=== PATIENT | female | born 1995 | race Native Hawaiian/Other Pacific Islander ===

== ENCOUNTER 2018-04-25 23:09 | Outpatient (CLI) | payer SELFPAY ==
[2018-04-25 23:52] VITALS: BP 99/62
[2018-04-26] MEDS ORDERED: LACTATED RINGERS 1,000 ML IV ONE (00:08)
[2018-04-26 04:10] LABS: Bilirubin,Urine NEG (Negative); Blood,Urine SM (Negative); Calcium Oxalate Crystals,Urine 1+; Color,Urine Yellow (Yellow); Mucus,Urine 1+ /HPF; Protein,Urine <15 mg/dL mg/dL (Negative); Urobilinogen,Urine < 2.0 mg/dL (<2.0)
== END 2018-04-26 01:55 | disposition home or self-care (01) ==
LOC: TRG 23:09
PROVIDERS: ATTEND Obstetrics & Gynecology
DX: O26.893 Other specified pregnancy related conditions, third trimester (principal); Z3A.30 30 weeks gestation of pregnancy
CPT/HCPCS: 36415; 59025; 81001; 82731

== ENCOUNTER 2018-06-16 09:25 | Inpatient (IN) | payer MEDICAID, OTHER ==
[2018-06-16] MEDS ORDERED: LACTATED RINGERS 1,000 ML IV ONE (10:39)
[2018-06-16 10:41] LABS: Bacteria,Urine 1+ /HPF (Negative); Bilirubin,Urine NEG (Negative); Blood,Urine NEG (Negative); Color,Urine Yellow (Yellow); Mucus,Urine 1+ /HPF; Protein,Urine <15 mg/dL mg/dL (Negative); Urobilinogen,Urine < 2.0 mg/dL (<2.0)
[2018-06-16] MEDS ORDERED: AMPICILLIN/NS 2 GM/100 ML 2 GM/100 ML BAG IV ONE (11:00)
[2018-06-16] MEDS ORDERED: BRETHINE SUB-Q ONE ×3 (11:00→16:00)
--- NOTE | 2018-06-16 11:06 | History and Physical Report ---
History of Present Illness Date of examination: 06/16/18 Date of admission: 06/16/18 10:30 Chief complaint: Contractions for 3 days History of present illness: 22 year old presents to L&D complaining of fairly regular contractions for the past 3 days. Patient states the contractions started hurting worse this morning when she woke up. Patient denies vaginal bleeding or leaking of fluid. Patient reports active movement. Patient denies fever, chills, or malaise. Patient state she received care at [facility] last year. She states she only made 2 visits, one at 20 weeks and another at about 4 weeks after that. She states she was last seen in January or February 2018. She states she has not received any care since that time due to lack of money. No records are available. Patient states her due date is 07/19/18 and was based on her LMP. Patient does not remember the exact date of her LMP. Patient states she had one ultrasound done at the clinic around 20 weeks and states she was told everything looked OK. labs and ultrasound have been ordered today. 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 denies: smoking, alcohol abuse, prescription drug abuse, IV drug use - Obstetrical History Expected Date of Delivery: 07/19/18 Actual Gestation: 35 Week(s) 2 Day(s) : 2 Para: 1 Hx # Term Pregnancies: 1 Number of Pregnancies: 1 Spontaneous Abortions: 0 Induced : 0 Number of Living Children: 1 Medications and Allergies Allergies Allergy/AdvReac Type Severity Reaction Status Date / Time No Known Allergies Allergy Verified 06/16/18 09:32 Home Medications Medication Instructions Recorded Confirmed Last Taken Type No Known Home Medications [No 06/16/18 06/16/18 Unknown History Reported Home Medications] Active Meds: Active Medications Dexamethasone (Decadron) 6 mg IM Q12HR KARYN Stop: 06/17/18 22:01 Ampicillin Sodium (Polycillin/Ns 2 Gm/100 Ml) 2 gm in 100 mls @ 100 mls/hr IV ONCE ONE; Protocol Stop: 06/16/18 11:59 Ampicillin Sodium (Ampicillin/Ns 1 Gm/50 Ml) 1 gm in 50 mls @ 100 mls/hr IV Q4H KARYN; Protocol Lactated Ringer's (Lactated Ringers) 1,000 mls @ 125 mls/hr IV DIRECT KARYN Lactated Ringer's (Lactated Ringers) 1,000 mls @ 999 mls/hr IV BOLUS ONE Stop: 06/16/18 11:39 Nitrofurantoin Macrocrystals (Macrobid) 100 mg PO Q12HR KARYN Review of Systems All systems: negative (contractions for the past 3 days) - Vital Signs Vital signs: Vital Signs Pulse BP 80 113/70 06/16/18 09:47 06/16/18 09:47 Temp Pulse Resp BP Pulse Ox 62 119/65 06/16/18 10:44 06/16/18 10:44 - Physical Exam Abdomen: Positive: normal appearance, soft. Negative: distention, tenderness, guarding, rigidity Genitourinary (Female): Positive: normal external genitalia, normal perenium. Negative: perineal/vulvar lesions Vagina: Positive: normal moisture (speculum exam performed; no leaking of water or vaginal bleeding noted) Uterus: Positive: enlarged. Negative: tender Anus/Rectum: Positive: normal perianal skin Extremities: Positive: normal. Negative: edema - Obstetrical FHR: category 1 Uterine Contraction Monitor Mode: External Cervical Dilatation: 2 Cervical Effacement Percentage: 70 station: -2 Uterine Contraction Pattern: Irregular Uterine Contraction Intensity: Mild Results Abnormal lab results 06/16/18 Range/Units 09:33 Urine WBC (Auto) 25.0 H (0.0-6.0) /HPF U Epithel Cells (Auto) 17.0 H (0-13.0) /HPF All other labs normal. Assessment and Plan A: at 35 weeks, 2 days gestation. Threatened labor. Limited care and no records available. GBS unknown. P: Admit. Continuous EFM. Bedrest. IM Dexamethasone for FLM. IV hydration and SQ Brethine for contractions. GBS prophylaxis. Treatment for possible UTI. labs and US for gestational age, EDC, VIRA, location of placenta, and presentation. Will consult with Dr. Mosher re: this patient due to gestation.
[2018-06-16] MEDS: DECADRON IM SCH ×2 (11:58→23:44)
[2018-06-16 12:07] LABS: Basophils % (Auto) 0.4 % (0.0-1.8); Eosinophils # (Auto) 0.1 K/mm3 (0.0-0.4); Eosinophils % (Auto) 0.8 % (0.0-4.3); Hematocrit 31.8 % (30.3-42.9); Hemoglobin 10.6 gm/dl (10.1-14.3); Lymphocytes # (Auto) 1.6 K/mm3 (1.2-5.4); Mean Corpuscular HGB Conc 33 % (30-34); Mean Corpuscular Volume 86 fl (79-97); Monocytes # (Auto) 0.5 K/mm3 (0.0-0.8); Monocytes % (Auto) 6.7 % (0.0-7.3); Platelet Count 170 K/mm3 (140-440); Red Blood Count 3.68 M/mm3 (3.65-5.03); Red Cell Distribution Width 14.4 % (13.2-15.2)
[2018-06-16 12:20] LABS: Amphetamine Screen,Urine PRESUMPTIVE NEGATIVE; Benzodiazepines Screen,Urine PRESUMPTIVE NEGATIVE; Cannabinoid Screen,Urine PRESUMPTIVE NEGATIVE; Cocaine Screen,Urine PRESUMPTIVE NEGATIVE; Methadone Screen,Urine PRESUMPTIVE NEGATIVE; Opiate Screen,Urine PRESUMPTIVE NEGATIVE
[2018-06-16 13:33] LABS: Hepatitis C Virus Antibody Non-Reactive (NonReactive)
--- NOTE | 2018-06-16 13:44 | Ultrasound Report ---
PROCEDURE: US OB FOLLOW UP TECHNIQUE: OB ultrasound was performed. HISTORY: EGA, EDC, EFW, VIRA, location of placenta, pr COMPARISONS: None. FINDINGS: A single live intrauterine fetus is present in cephalic presentation with a heart rate of 158 bpm. Th e placenta is grade 2 and anterior in location. No evidence of placenta previa. The maternal cervix i s closed measuring 3.0 cm in length. Amniotic fluid index is normal at 7.9 cm. Biparietal diameter: 35 weeks and 6 days. Head circumference: 35 weeks and 5 days. Abdominal circumference: 44 weeks and 5 days. Femur length: 35 weeks and 2 days. Combined estimated gestational age is 35 weeks and 3 days with an MONICA of 07/18/2018. Estimated w eight is 2578 g. IMPRESSION: Live intrauterine measuring at 35 weeks and 3 days gestational age with an MONICA of 07/18/2018 . Amniotic fluid index of 7.9 cm. No evidence of placenta previa. This document is electronically signed by Jade Gilbert., June 16 2018 01:42:31 PM ET
[2018-06-16] MEDS: MACROBID PO SCH ×2 (14:27→22:04)
[2018-06-16] MEDS: AMPICILLIN/NS 1 GM/50 ML 1 GM/50 ML BAG IV SCH ×3 (16:14→23:44)
[2018-06-16] MEDS: LACTATED RINGERS 1,000 ML IV SCH (22:05)
[2018-06-17] MEDS ORDERED: TYLENOL PO ONE (00:43)
[2018-06-17] MEDS: AMPICILLIN/NS 1 GM/50 ML 1 GM/50 ML BAG IV SCH ×5 (04:08→14:53)
--- NOTE | 2018-06-17 09:48 | Progress Note ---
Assessment and Plan - Patient Problems (1) 35 weeks gestation of Current Visit: Yes Status: Acute (2) labor in third trimester Current Visit: Yes Status: Acute Qualifiers: Fetus number: single or unspecified fetus Plan to address problem: Continue current management Continue IV hydration Continue Dexamethasone series If no cervical change after completion of Dexamethasone series, will discharge patient to home with PTL precautions to f/u at [facility] in 48 hours (3) Limited care in third trimester Current Visit: Yes Status: Acute Subjective - Subjective Date of service: 06/17/18 Principal diagnosis: IUP @ 35w3d, Labor Interval history: See H&P Patient reports: movement normal, contractions (irregular), no loss of fluid, no vaginal bleeding Objective - Vital Signs Vital Signs: Vital Signs - 12hr 06/16/18 06/16/18 06/17/18 23:45 23:49 02:59 Temperature 98.1 F Pulse Rate 68 68 Respiratory 16 Rate Blood Pressure 114/69 O2 Sat by Pulse 98 Oximetry 06/17/18 06/17/18 06/17/18 03:04 03:09 03:14 Temperature Pulse Rate 71 71 72 Respiratory Rate Blood Pressure O2 Sat by Pulse 97 98 97 Oximetry 06/17/18 06/17/18 06/17/18 03:19 03:24 03:29 Temperature Pulse Rate 72 74 71 Respiratory Rate Blood Pressure O2 Sat by Pulse 97 98 97 Oximetry 06/17/18 06/17/18 06/17/18 03:34 03:39 03:44 Temperature Pulse Rate 71 70 75 Respiratory Rate Blood Pressure O2 Sat by Pulse 97 97 97 Oximetry 06/17/18 06/17/18 06/17/18 03:49 03:54 03:59 Temperature Pulse Rate 69 68 69 Respiratory Rate Blood Pressure O2 Sat by Pulse 97 98 97 Oximetry 06/17/18 06/17/18 06/17/18 04:04 04:05 04:09 Temperature 98.3 F Pulse Rate 69 73 Respiratory 18 Rate Blood Pressure O2 Sat by Pulse 97 98 Oximetry 06/17/18 06/17/18 06/17/18 04:12 04:14 04:19 Temperature Pulse Rate 73 75 81 Respiratory Rate Blood Pressure 105/57 O2 Sat by Pulse 97 97 Oximetry 06/17/18 06/17/18 06/17/18 04:24 04:29 04:34 Temperature Pulse Rate 77 76 74 Respiratory Rate Blood Pressure O2 Sat by Pulse 97 97 97 Oximetry 06/17/18 06/17/18 06/17/18 04:39 04:44 04:49 Temperature Pulse Rate 73 72 72 Respiratory Rate Blood Pressure O2 Sat by Pulse 97 97 97 Oximetry 06/17/18 06/17/18 06/17/18 04:54 04:59 05:04 Temperature Pulse Rate 74 69 69 Respiratory Rate Blood Pressure O2 Sat by Pulse 97 96 97 Oximetry 06/17/18 06/17/18 06/17/18 05:09 05:14 05:19 Temperature Pulse Rate 65 69 65 Respiratory Rate Blood Pressure O2 Sat by Pulse 96 96 96 Oximetry 06/17/18 06/17/18 06/17/18 05:24 05:29 05:34 Temperature Pulse Rate 63 71 70 Respiratory Rate Blood Pressure O2 Sat by Pulse 97 97 97 Oximetry 06/17/18 06/17/18 06/17/18 05:39 05:44 05:49 Temperature Pulse Rate 72 72 71 Respiratory Rate Blood Pressure O2 Sat by Pulse 97 98 97 Oximetry 06/17/18 06/17/18 06/17/18 05:54 05:59 06:04 Temperature Pulse Rate 73 73 85 Respiratory Rate Blood Pressure O2 Sat by Pulse 97 97 98 Oximetry 06/17/18 06/17/18 06/17/18 06:09 06:14 06:19 Temperature Pulse Rate 73 78 74 Respiratory Rate Blood Pressure O2 Sat by Pulse 98 97 98 Oximetry 06/17/18 06/17/18 06/17/18 06:24 06:29 06:34 Temperature Pulse Rate 71 74 70 Respiratory Rate Blood Pressure O2 Sat by Pulse 98 97 98 Oximetry 06/17/18 06/17/18 06/17/18 06:39 06:44 06:49 Temperature Pulse Rate 77 69 70 Respiratory Rate Blood Pressure O2 Sat by Pulse 98 97 97 Oximetry 06/17/18 06/17/18 06/17/18 06:54 06:59 07:04 Temperature Pulse Rate 69 69 71 Respiratory Rate Blood Pressure O2 Sat by Pulse 97 97 96 Oximetry 06/17/18 06/17/18 06/17/18 07:09 07:14 07:19 Temperature Pulse Rate 69 69 72 Respiratory Rate Blood Pressure O2 Sat by Pulse 97 97 97 Oximetry 06/17/18 06/17/1806/17/19 07:24 07:29 07:34 Temperature Pulse Rate 71 71 72 Respiratory Rate Blood Pressure O2 Sat by Pulse 97 99 97 Oximetry 06/17/18 06/17/18 06/17/18 07:39 07:44 07:49 Temperature Pulse Rate 74 71 72 Respiratory Rate Blood Pressure O2 Sat by Pulse 98 98 97 Oximetry 06/17/18 06/17/18 06/17/18 07:54 07:59 08:04 Temperature Pulse Rate 67 75 78 Respiratory Rate Blood Pressure O2 Sat by Pulse 99 99 97 Oximetry 06/17/18 06/17/18 06/17/18 08:09 08:14 08:19 Temperature Pulse Rate 71 70 71 Respiratory Rate Blood Pressure O2 Sat by Pulse 98 97 97 Oximetry 06/17/18 06/17/18 06/17/18 08:24 08:29 08:34 Temperature Pulse Rate 72 68 75 Respiratory Rate Blood Pressure O2 Sat by Pulse 96 98 98 Oximetry 06/17/18 06/17/18 06/17/18 08:41 08:46 08:51 Temperature Pulse Rate 85 77 76 Respiratory Rate Blood Pressure O2 Sat by Pulse 97 98 98 Oximetry 06/17/18 06/17/18 06/17/18 08:56 09:01 09:06 Temperature Pulse Rate 74 77 76 Respiratory Rate Blood Pressure O2 Sat by Pulse 98 97 97 Oximetry 06/17/18 06/17/18 06/17/18 09:11 09:16 09:21 Temperature Pulse Rate 76 72 76 Respiratory Rate Blood Pressure O2 Sat by Pulse 97 96 99 Oximetry 06/17/18 06/17/18 06/17/18 09:26 09:31 09:36 Temperature Pulse Rate 74 68 74 Respiratory Rate Blood Pressure O2 Sat by Pulse 97 97 96 Oximetry - Exam Vulva: both: normal FHR: auscultation normal, category 1 FHR comments: baseline 140, moderate variability, 15x15 accels, no decels Uterine Contraction Monitor Mode: External Cervical Dilatation: 2 Cervical Effacement Percentage: 70 station: -2 Uterine Contraction Pattern: Irregular Extremities: normal - Labs Labs: Abnormal Labs 06/16/18 06/16/18 09:33 11:48 Seg Neutrophils % 72.1 H Urine WBC (Auto) 25.0 H U Epithel Cells (Auto) 17.0 H Laboratory Results - last 24 hr 06/16/18 06/16/18 06/16/18 09:33 11:48 11:48 WBC 7.9 RBC 3.68 Hgb 10.6 Hct 31.8 MCV 86 MCH 29 MCHC 33 RDW 14.4 Plt Count 170 Lymph % (Auto) 20.0 [place] % (Auto) 6.7 Eos % (Auto) 0.8 Baso % (Auto) 0.4 Lymph # 1.6 [place] # 0.5 Eos # 0.1 Baso # 0.0 Seg Neutrophils % 72.1 H Seg Neutrophils # 5.7 Hemoglobin A1c Urine Color Yellow Urine Turbidity Slightly-cloudy Urine pH 6.0 Ur Specific [place] 1.021 Urine Protein <15 mg/dl Urine Glucose (UA) Neg Urine Ketones Neg Urine Blood Neg Urine Nitrite Neg Urine Bilirubin Neg Urine Urobilinogen < 2.0 Ur Leukocyte Esterase Lg Urine WBC (Auto) 25.0 H Urine RBC (Auto) 11.0 U Epithel Cells (Auto) 17.0 H Urine Bacteria (Auto) 1+ Urine Mucus 1+ Urine Opiates Screen Urine Methadone Screen Ur Barbiturates Screen Ur Phencyclidine Scrn Ur Amphetamines Screen U Benzodiazepines Scrn Urine Cocaine Screen U Marijuana (THC) Screen Drugs of Abuse Note RPR Hep Bs Antigen Hepatitis C Antibody HIV 1&2 Antibody Rapid HIV P24 Antigen Rubella IgG Antibody Blood Type A POSITIVE Antibody Screen Negative 06/16/18 06/16/18 06/16/18 11:48 11:48 11:48 WBC RBC Hgb Hct MCV MCH MCHC RDW Plt Count Lymph % (Auto) [place] % (Auto) Eos % (Auto) Baso % (Auto) Lymph # [place] # Eos # Baso # Seg Neutrophils % Seg Neutrophils # Hemoglobin A1c Urine Color Urine Turbidity Urine pH Ur Specific [place] Urine Protein Urine Glucose (UA) Urine Ketones Urine Blood Urine Nitrite Urine Bilirubin Urine Urobilinogen Ur Leukocyte Esterase Urine WBC (Auto) Urine RBC (Auto) U Epithel Cells (Auto) Urine Bacteria (Auto) Urine Mucus Urine Opiates Screen Urine Methadone Screen Ur Barbiturates Screen Ur Phencyclidine Scrn Ur Amphetamines Screen U Benzodiazepines Scrn Urine Cocaine Screen U Marijuana (THC) Screen Drugs of Abuse Note RPR Nonreactive Hep Bs Antigen Hepatitis C Antibody Non-reactive HIV 1&2 Antibody Rapid Non react HIV P24 Antigen Non react Rubella IgG Antibody Immune Blood Type Antibody Screen 06/16/18 06/16/18 06/16/18 11:48 11:48 Unknown WBC RBC Hgb Hct MCV MCH MCHC RDW Plt Count Lymph % (Auto) [place] % (Auto) Eos % (Auto) Baso % (Auto) Lymph # [place] # Eos # Baso # Seg Neutrophils % Seg Neutrophils # Hemoglobin A1c 5.6 Urine Color Urine Turbidity Urine pH Ur Specific [place] Urine Protein Urine Glucose (UA) Urine Ketones Urine Blood Urine Nitrite Urine Bilirubin Urine Urobilinogen Ur Leukocyte Esterase Urine WBC (Auto) Urine RBC (Auto) U Epithel Cells (Auto) Urine Bacteria (Auto) Urine Mucus Urine Opiates Screen Presumptive negative Urine Methadone Screen Presumptive negative Ur Barbiturates Screen Presumptive negative Ur Phencyclidine Scrn Presumptive negative Ur Amphetamines Screen Presumptive negative U Benzodiazepines Scrn Presumptive negative Urine Cocaine Screen Presumptive negative U Marijuana (THC) Screen Presumptive negative Drugs of Abuse Note Disclamer RPR Hep Bs Antigen Non-reactive Hepatitis C Antibody HIV 1&2 Antibody Rapid HIV P24 Antigen Rubella IgG Antibody Blood Type Antibody Screen
[2018-06-17] MEDS: DECADRON IM SCH ×2 (10:30→22:00)
[2018-06-17] MEDS: MACROBID PO SCH ×2 (10:35→22:00)
[2018-06-17] MEDS: LACTATED RINGERS 1,000 ML IV SCH (13:40)
[2018-06-17 21:57] VITALS: BP 107/62
--- NOTE | 2018-06-18 06:58 | Discharge Summary ---
<MATILDE PENALOZA - Last Filed: 06/18/18 06:58> Providers - Providers Date of Admission: 06/16/18 10:30 Date of discharge: 06/17/18 Attending physician: JOSE ALEJANDRO GONZALEZ MD 06/16/18 Consult to Case Management [CONS] Routine Services Needed at Discharge: Community Health Advisor Primary care physician: JOSE ALEJANDRO GONZALEZ MD Hospitalization Reason for admission: IUP - , labor Discharge diagnosis: other ( Labor - undelivered) Hospital course: Complicated by labor. Undelivered. Completed Dexamethasone series. No cervical change in 24 hours. Condition at discharge: Stable Disposition: [id number] TO HOME OR SELFCARE - Discharge Diagnoses (1) 35 weeks gestation of Status: Acute (2) labor in third trimester Status: Resolved Qualifiers: Fetus number: single or unspecified fetus (3) Limited care in third trimester Status: Acute Plan - Provider Discharge Summary Activity: routine, other (pelvic rest, minimal activity) Diet: routine Instructions: routine Additional instructions: [] Smoking cessation referral if applicable(refer to patient education folder for contact #) [] Refer to [facility]'s [facility] Booklet Call your doctor immediately for: * Fever > 100.5 * Heavy vaginal bleeding ( >1 pad per hour) * Severe persistent headache * Shortness of breath * Reddened, hot, painful area to leg or breast * Drainage or odor from incision. * Keep incision clean and dry at all times and follow doctor's instructions regarding bathing/showering - Follow up plan Follow up: JOSE ALEJANDRO GONZALEZ MD [Primary Care Provider] - 48 Hours (Patient instructed to follow up at [facility] in 2 days) Forms: [facility] Discharge Summary <SÁNCHEZ FOX - Last Filed: 06/22/18 14:34> Providers - Providers Date of Admission: 06/16/18 10:30 Attending physician: JOSE ALEJANDRO GONZALEZ MD 06/16/18 Consult to Case Management [CONS] Routine Services Needed at Discharge: Community Health Advisor Primary care physician: JOSE ALEJANDRO GONZALEZ MD Hospitalization Pertinent studies: Laboratory Tests 06/16/18 06/16/18 06/16/18 09:33 11:48 11:48 WBC 7.9 RBC 3.68 Hgb 10.6 Hct 31.8 MCV 86 MCH 29 MCHC 33 RDW 14.4 Plt Count 170 Lymph % (Auto) 20.0 [place] % (Auto) 6.7 Eos % (Auto) 0.8 Baso % (Auto) 0.4 Lymph # 1.6 [place] # 0.5 Eos # 0.1 Baso # 0.0 Seg Neutrophils % 72.1 H Seg Neutrophils # 5.7 Hemoglobin A1c Urine Color Yellow Urine Turbidity Slightly-cloudy Urine pH 6.0 Ur Specific [place] 1.021 Urine Protein <15 mg/dl Urine Glucose (UA) Neg Urine Ketones Neg Urine Blood Neg Urine Nitrite Neg Urine Bilirubin Neg Urine Urobilinogen < 2.0 Ur Leukocyte Esterase Lg Urine WBC (Auto) 25.0 H Urine RBC (Auto) 11.0 U Epithel Cells (Auto) 17.0 H Urine Bacteria (Auto) 1+ Urine Mucus 1+ Urine Opiates Screen Urine Methadone Screen Ur Barbiturates Screen Ur Phencyclidine Scrn Ur Amphetamines Screen U Benzodiazepines Scrn Urine Cocaine Screen U Marijuana (THC) Screen Drugs of Abuse Note RPR Hep Bs Antigen Hepatitis C Antibody HIV 1&2 Antibody Rapid HIV P24 Antigen Rubella IgG Antibody Blood Type A POSITIVE Antibody Screen Negative 06/16/18 06/16/18 06/16/18 11:48 11:48 11:48 WBC RBC Hgb Hct MCV MCH MCHC RDW Plt Count Lymph % (Auto) [place] % (Auto) Eos % (Auto) Baso % (Auto) Lymph # [place] # Eos # Baso # Seg Neutrophils % Seg Neutrophils # Hemoglobin A1c Urine Color Urine Turbidity Urine pH Ur Specific [place] Urine Protein Urine Glucose (UA) Urine Ketones Urine Blood Urine Nitrite Urine Bilirubin Urine Urobilinogen Ur Leukocyte Esterase Urine WBC (Auto) Urine RBC (Auto) U Epithel Cells (Auto) Urine Bacteria (Auto) Urine Mucus Urine Opiates Screen Urine Methadone Screen Ur Barbiturates Screen Ur Phencyclidine Scrn Ur Amphetamines Screen U Benzodiazepines Scrn Urine Cocaine Screen U Marijuana (THC) Screen Drugs of Abuse Note RPR Nonreactive Hep Bs Antigen Hepatitis C Antibody Non-reactive HIV 1&2 Antibody Rapid Non react HIV P24 Antigen Non react Rubella IgG Antibody Immune Blood Type Antibody Screen 06/16/18 06/16/18 06/16/18 11:48 11:48 Unknown WBC RBC Hgb Hct MCV MCH MCHC RDW Plt Count Lymph % (Auto) [place] % (Auto) Eos % (Auto) Baso % (Auto) Lymph # [place] # Eos # Baso # Seg Neutrophils % Seg Neutrophils # Hemoglobin A1c 5.6 Urine Color Urine Turbidity Urine pH Ur Specific [place] Urine Protein Urine Glucose (UA) Urine Ketones Urine Blood Urine Nitrite Urine Bilirubin Urine Urobilinogen Ur Leukocyte Esterase Urine WBC (Auto) Urine RBC (Auto) U Epithel Cells (Auto) Urine Bacteria (Auto) Urine Mucus Urine Opiates Screen Presumptive negative Urine Methadone Screen Presumptive negative Ur Barbiturates Screen Presumptive negative Ur Phencyclidine Scrn Presumptive negative Ur Amphetamines Screen Presumptive negative U Benzodiazepines Scrn Presumptive negative Urine Cocaine Screen Presumptive negative U Marijuana (THC) Screen Presumptive negative Drugs of Abuse Note Disclamer RPR Hep Bs Antigen Non-reactive Hepatitis C Antibody HIV 1&2 Antibody Rapid HIV P24 Antigen Rubella IgG Antibody Blood Type Antibody Screen - Discharge Diagnoses (1) Anemia, chronic disease Status: Acute Plan - Provider Discharge Summary Additional instructions: [] Smoking cessation referral if applicable(refer to patient education folder for contact #) [] Refer to [facility]'s [facility] Booklet Call your doctor immediately for: * Fever > 100.5 * Heavy vaginal bleeding ( >1 pad per hour) * Severe persistent headache * Shortness of breath * Reddened, hot, painful area to leg or breast * Drainage or odor from incision. * Keep incision clean and dry at all times and follow doctor's instructions regarding bathing/showering
== END 2018-06-17 23:15 | disposition home or self-care (01) | DRG 833 ==
LOC: TRG 09:25 → LD 10:30 → TRG 10:37
PROVIDERS: ADMIT Obstetrics & Gynecology; ATTEND Obstetrics & Gynecology
DX: O60.03 Preterm labor without delivery, third trimester (principal); Z3A.35 35 weeks gestation of pregnancy
CPT/HCPCS: 36415; 59025; 76816; 80307; 81001; 83036; 85025; 86592; 86706; 86762; 86803; 86850; 86900; 86901; 87086; 87806; G0378; J0290; J1100; J3105; J7120

== ENCOUNTER 2018-07-03 19:10 | Inpatient (IN) | payer OTHER ==
[2018-07-04] MEDS ORDERED: STADOL IV PRN (04:47)
[2018-07-04] MEDS ORDERED: POLYCILLIN/NS 2 GM/100 ML 2 GM/100 ML BAG IV ONE (04:55)
[2018-07-04] MEDS ORDERED: LACTATED RINGERS 1,000 ML IV SCH (05:00)
[2018-07-04] MEDS ORDERED: SUBLIMAZE IV ONE (05:47)
[2018-07-04 06:48] LABS: Hematocrit 30.3 % (30.3-42.9); Mean Corpuscular HGB Conc 33 % (30-34); Mean Corpuscular Hemoglobin 28 pg (28-32); Mean Corpuscular Volume 84 fl (79-97); Platelet Count 191 K/mm3 (140-440); Red Cell Distribution Width 15.7 % (13.2-15.2)
[2018-07-04] MEDS ORDERED: NARCAN 0.4 MG/1 ML IV PRN (11:35)
[2018-07-04] MEDS ORDERED: BRETHINE SUB-Q PRN (11:35)
[2018-07-04] MEDS ORDERED: ZOFRAN IV PRN (11:35)
[2018-07-04] MEDS ORDERED: XYLOCAINE 2% INFILTRATI ONE ×2 (11:35→14:40)
[2018-07-04] MEDS ORDERED: BRETHINE IVP PRN (11:35)
--- NOTE | 2018-07-04 11:59 | History and Physical Report ---
History of Present Illness Date of examination: 07/04/18 Date of admission: 07/03/18 21:46 Chief complaint: contractions History of present illness: 23 yo Fe , MONICA 07/19/2018 (per pt verbal report), 37w6d, presents with onset of contractions. Pt reports limited care with [facility] (only 2 visits; last visit sometime in March). No records available. Requested. She reports her MONICA to be 07/19/2018 by ultrasound at "about 5 months." Pt was seen at [facility] 06/16/2018 for contractions, had an OBUS; Report reviewed. 35w3d w/MONICA 07/18/2018, EFW 2578g. Normal VIRA. no previa. Pt was given steroids for labor. Pt denies any previous medical history. Denies previous surgery. 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 ) Family/Genetic History: none (Pt denies) Social history: no significant social history, single, lives with family, full code. denies: smoking, alcohol abuse, prescription drug abuse, IV drug use - Obstetrical History Expected Date of Delivery: 07/19/18 Actual Gestation: 37 Week(s) 6 Day(s) : 2 Para: 1 Hx # Term Pregnancies: 1 Number of Pregnancies: 0 Spontaneous Abortions: 0 Induced : 0 Number of Living Children: 1 Medications and Allergies Allergies Allergy/AdvReac Type Severity Reaction Status Date / Time No Known Allergies Allergy Verified 06/16/18 09:32 Home Medications Medication Instructions Recorded Confirmed Last Taken Type No Known Home Medications [No 06/16/18 07/04/18 Unknown History Reported Home Medications] Active Meds: Active Medications Butorphanol Tartrate (Stadol) 2 mg IV Q2H PRN PRN Reason: Labor Pain Ephedrine Sulfate (Ephedrine Sulfate) 10 mg IV Q2M PRN PRN Reason: Hypotension Lactated Ringer's (Lactated Ringers) 1,000 mls @ 125 mls/hr IV DIRECT KARYN Last Admin: 07/04/18 09:04 Dose: 125 mls/hr Documented by: Oxytocin/Sodium Chloride (Pitocin/Ns 20 Unit/1000ml Drip) 20 units in 1,000 mls @ 125 mls/hr IV DIRECT KARYN Lidocaine (Xylocaine 2%) 20 ml INFILTRATI ONCE ONE Stop: 07/04/18 11:36 Naloxone HCl (Narcan 0.4 Mg/1 Ml) 0.1 mg IV Q2MIN PRN PRN Reason: Res Rate </= 8 or 02 SAT < 92% Ondansetron HCl (Zofran) 4 mg IV Q8H PRN PRN Reason: Nausea And Vomiting Terbutaline Sulfate (Brethine) 0.25 mg SUB-Q ONCE PRN PRN Reason: Hyperstimulation/Hypertonicity Terbutaline Sulfate (Brethine) 0.25 mg IVP ONCE PRN PRN Reason: Hyperstimulation/Hypertonicity Review of Systems Eyes: normal appearance Cardiovascular: other (Pt denies any Hx), no chest pain, no shortness of breath, no high blood pressure Respiratory: no shortness of breath Breasts: normal Gastrointestinal: abdominal pain (contractions), no nausea, no vomiting, no diarrhea, no constipation Genitourinary: normal appearance, contractions, no vaginal bleeding, no vaginal discharge, no leakage of fluid, no dysuria, no pelvic pain, no genital sores Integumentary: other (Denies), no rash, no sores, no lesions Psychiatric: no other (Denies) Endocrine: other (Denies) - Vital Signs Vital signs: Vital Signs Pulse BP 80 114/73 07/03/18 19:49 07/03/18 19:49 Temp Pulse Resp BP Pulse Ox 71 18 104/71 07/04/18 09:11 07/04/18 04:33 07/04/18 09:11 - Physical Exam Breasts: Positive: normal Cardiovascular: Regular rate, Normal S1, Normal S2, No murmurs Lungs: Positive: Clear to auscultation, Normal air movement Abdomen: Positive: normal appearance, soft, normal bowel sounds. Negative: di stention Genitourinary (Female): Positive: normal external genitalia, normal perenium Vulva: both: normal Vagina: Positive: normal moisture Uterus: Positive: enlarged (; 36 cm fundal height) Anus/Rectum: Positive: normal perianal skin Extremities: Positive: normal Deep Tendon Reflex Grade: Normal +2 - Obstetrical FHR: auscultation normal, category 1 Uterine Contraction Monitor Mode: External Cervical Dilatation: 4 Cervical Effacement Percentage: 80 station: -2 Uterine Contraction Pattern: Irregular Uterine Tone Measurement Phase: Resting Uterine Contraction Intensity: Moderate Results Result Diagrams: 07/04/18 Unknown Abnormal lab results 07/04/18 Range/Units Unknown RBC 3.60 L (3.65-5.03) M/mm3 Hgb 10.0 L (10.1-14.3) gm/dl RDW 15.7 H (13.2-15.2) % All other labs normal. Assessment and Plan A: IUP at 37w6d GBS unknown Limited care; 2 visits ([facility] Category 1 tracing labor P: Admit to L&D GBS Prophylaxis Ob labs Pitocin augmentation (per consult with Dr. Linares; review of US on 06/16/18) Anticipate
[2018-07-04] MEDS ORDERED: PITOCin/NS 20 UNIT/1000ML DRIP 20 UNITS/1,000 ML BAG IV SCH (12:00)
[2018-07-04] MEDS ORDERED: AMPICILLIN/NS 1 GM/50 ML 1 GM/50 ML BAG IV SCH (13:00)
[2018-07-04] MEDS ORDERED: PITOCin/NS 30 UNIT/500ML 30 UNITS/500 ML BAG IV SCH (13:00)
[2018-07-04 13:53] LABS: Hepatitis C Virus Antibody Non-Reactive (NonReactive)
[2018-07-04] MEDS ORDERED: NARCAN 2 MG/2 ML ONE (14:10)
[2018-07-04 14:27] LABS: Rubella IgG Antibody Immune (Immune)
[2018-07-04] MEDS ORDERED: TYLENOL PO PRN (15:00)
[2018-07-04] MEDS ORDERED: PHENERGAN PO PRN (15:00)
[2018-07-04] MEDS ORDERED: SODIUM CHLORIDE FLUSH SYRINGE 10 ML IV PRN (15:00)
[2018-07-04] MEDS ORDERED: LANSINOH TP PRN (15:00)
[2018-07-04] MEDS ORDERED: BENADRYL PO PRN (15:00)
[2018-07-04] MEDS ORDERED: TUCKS PAD TP PRN (15:00)
--- NOTE | 2018-07-04 15:00 | Procedure Note ---
OB Delivery Note - Delivery Date of Delivery: 07/04/18 (14:27) Surgeon: RENETTA ROBLES (APOLINAR) Estimated blood loss: 100cc - Vaginal Delivery presentation: vertex Delivery position: OA Intrapartum events: none Delivery induction: none Delivery augmentation: rupture of membranes, pitocin Delivery monitor: external FHT, external uterine Route of delivery: (14:27) Delivery placenta: spontaneous (14:34) Delivery cord: 3 umbilical vessels Episiotomy: none Delivery laceration: 1st degree Delivery repair: vicryl (2-0 SH) Anesthesia: local (For repair), intravenous (Stadol x1 dose) Delivery comments: viable female , IVIS position at 14:27. Vigorous infant placed [id number] on mothers abdomen. Delayed cord clamping; cut by FOB with my guidance. Spontaneous flores delivery of intact placenta at 14:34. 3VC. FF@U-2. Bleeding small. Small first degree perineal laceration repaired under local anesthesia using 20- vicryl SH. Pt tolerated well. EB: 100cc. and mother left is stable condition in L&D. - A at 1 minute: 8 at 5 minutes: 9 Infant Gender: Female (7lbs 2oz, 3225 grams)
[2018-07-04] MEDS: MOTRIN PO SCH (15:29)
[2018-07-04 15:33] LABS: Amphetamine Screen,Urine PRESUMPTIVE NEGATIVE; Benzodiazepines Screen,Urine PRESUMPTIVE NEGATIVE; Cannabinoid Screen,Urine PRESUMPTIVE NEGATIVE; Cocaine Screen,Urine PRESUMPTIVE NEGATIVE; Methadone Screen,Urine PRESUMPTIVE NEGATIVE; Opiate Screen,Urine PRESUMPTIVE NEGATIVE
[2018-07-04] MEDS ORDERED: MILK OF MAGNESIA PO PRN (22:00)
[2018-07-04] MEDS ORDERED: DULCOLAX PR PRN (22:00)
[2018-07-05] MEDS: MOTRIN PO SCH ×3 (00:49→16:58)
[2018-07-05] MEDS: NORCO 5/325 PO PRN ×3 (00:50→16:57)
[2018-07-05 03:45] LABS: Hematocrit 27.5 % (30.3-42.9); Hemoglobin 9.4 gm/dl (10.1-14.3)
--- NOTE | 2018-07-05 10:03 | Progress Note ---
Assessment and Plan - Patient Problems (1) Status post normal vaginal delivery Current Visit: Yes Status: Acute Plan to address problem: PPD 1 - stable Continue routine PP orders Anticipate discharge in 24-48 hours (2) Anemia due to blood loss, acute Current Visit: Yes Status: Acute Plan to address problem: Asymptomatic Iron therapy initiated Subjective - Subjective Date of service: 07/05/18 Principal diagnosis: PPD #1; s/p Interval history: see H&P and OB Delivery Procedure Note Patient reports: appetite normal, voiding normally, pain well controlled, ambulating normally, no dizzy ambulation : doing well Objective - Vital Signs Latest vital signs: Vital Signs Temp Pulse Resp BP Pulse Ox 07/05/18 08:00 97.6 F 67 18 107/59 99 07/05/18 00:00 98.2 F 98 H 18 101/49 96 07/04/18 20:10 98.0 F 56 L 18 122/53 99 07/04/18 16:40 98.5 F 65 18 112/69 98 07/04/18 16:38 98.5 F 20 07/04/18 10:00 98.4 F 18 Intake and Output 07/04/18 07/05/18 07/05/18 23:59 07:59 15:59 Intake Total 240 Balance 240 Intake: Oral 240 Other: Total, Intake Amount 240 # Voids Void 1 - Exam Cardiovascular: Present: Regular rate Lungs: Present: Clear to auscultation Abdomen: Present: normal appearance, soft Vulva: both: laceration/episiotomy (healing well) Uterus: Present: normal, firm, fundal height at umbilicus Extremities: Present: normal Comments: small lochia - Labs Labs: Abnormal lab results 07/05/18 Range/Units 03:16 Hgb 9.4 L (10.1-14.3) gm/dl Hct 27.5 L (30.3-42.9) %
[2018-07-05] MEDS: FEOSOL PO SCH (16:58)
[2018-07-06] MEDS: MOTRIN PO SCH ×3 (00:56→09:21)
[2018-07-06] MEDS: NORCO 5/325 PO PRN ×2 (00:58→06:49)
[2018-07-06] MEDS: FEOSOL PO SCH (09:20)
--- NOTE | 2018-07-06 10:44 | Progress Note ---
Assessment and Plan A: day 2 S/P spontaneous vaginal delivery. Anemia secondary to and blood loss. P: Discharge patient home today when baby is able to go. discharge instructions and warning signs discussed with patient. Advised patient to avoid intercourse, lifting and heavy housework, driving. Advised patient to continue t o take her vitamins and iron supplements at home. Advised patient to follow up at [facility] in 6 weeks for exam. Patient voiced understanding of all instructions. Subjective - Subjective Date of service: 07/06/18 Principal diagnosis: PPD #2; s/p Interval history: day 2 S/P spontaneous vaginal delivery. Doing well. Patient desires discharge today. Voiding without difficulty; tolerating a regular diet, ambulating well. . Patient reports: appetite normal, voiding normally, pain well controlled, flatus, ambulating normally, no dizzy ambulation, no bowel movement, no nauseated : doing well Objective - Vital Signs Latest vital signs: Vital Signs Temp Pulse Resp BP BP Pulse Ox 07/06/18 09:21 14 07/06/18 08:00 97.8 F 60 16 103/60 99 07/06/18 06:50 18 07/06/18 06:49 18 07/06/18 00:58 18 07/06/18 00:56 18 07/06/18 00:38 98.4 F 77 18 122/81 97 07/05/18 16:35 98 F 91 H 18 126/81 Intake and Output 07/05/18 07/06/18 07/06/18 23:59 07:59 15:59 Intake Total 360 240 Balance 360 240 Intake: Oral 360 240 Other: Total, Intake Amount 360 240 # Voids Void 1 1 - Exam Cardiovascular: Present: Regular rate, Normal S1, Normal S2, No murmurs Lungs: Present: Clear to auscultation Abdomen: Present: normal appearance, soft. Absent: distention, tenderness, guarding, rigidity Uterus: Present: normal, firm, fundal height below umbilicus. Absent: bogginess, tenderness Extremities: Present: normal
--- NOTE | 2018-07-06 10:46 | Discharge Summary ---
Providers - Providers Date of Admission: 07/03/18 21:46 Date of discharge: 07/06/18 Attending physician: JOSE ALEJANDRO GONZALEZ MD Primary care physician: JOSE ALEJANDRO GONZALEZ MD Hospitalization Reason for admission: active labor Delivery: Episiotomy: none Laceration: none Other procedures: none complications: none Discharge diagnosis: IUP at term delivered [place] baby: female Pertinent studies: Labs Hospital course: Normal hospital course. Condition at discharge: Good Disposition: DC-01 TO HOME OR SELFCARE - Discharge Diagnoses (1) Term delivered Status: Acute (2) Anemia due to blood loss Status: Acute Plan - Provider Discharge Summary Activity: routine, no sex for 6 weeks, no heavy lifting 4 weeks, no strenuous exercise Diet: routine Instructions: routine Additional instructions: Please take your vitamins and iron supplements at home. Call your doctor immediately for: * Fever > 100.5 * Heavy vaginal bleeding ( >1 pad per hour) * Severe persistent headache * Shortness of breath * Reddened, hot, painful area to leg or breast - Follow up plan Follow up: JOSE ALEJANDRO GONZALEZ MD [Primary Care Provider] - 6 Weeks
[2018-07-06 15:19] VITALS: BP 108/70
== END 2018-07-06 16:00 | disposition home or self-care (01) | DRG 806 ==
LOC: TRG 19:10 → LD 21:46 → OB 07-04 16:50
PROVIDERS: ADMIT Obstetrics & Gynecology; ATTEND Obstetrics & Gynecology
PROC: 10E0XZZ Delivery of Products of Conception, External Approach (ICD-10-PCS; principal; 2018-07-04)
PROC: 0HQ9XZZ Repair Perineum Skin, External Approach (ICD-10-PCS; 2018-07-04)
DX: O70.0 First degree perineal laceration during delivery (principal); D62 Acute posthemorrhagic anemia; Z37.0 Single live birth; O99.02 Anemia complicating childbirth; Z3A.37 37 weeks gestation of pregnancy
CPT/HCPCS: 36415; 80307; 85014; 85018; 85027; 86592; 86706; 86762; 86803; 86850; 86900; 86901; 87806; G0378; A6250; J0290; J0595; J2310; J2590; J7120